=== PATIENT | male | born 2000 | race Caucasian/White ===

== ENCOUNTER 2019-05-15 13:45 | Emergency (ER) | payer OTHER ==
[~2019-05-15] VITALS: Ht 175.3 cm; Wt 74.4 kg
== END 2019-05-15 14:21 | disposition home or self-care (01) ==
LOC: ER 13:45
DX: S90.411A Abrasion, right great toe, initial encounter (principal); W22.8XXA Striking against or struck by other objects, initial encounter; Y93.89 Activity, other specified; Y92.832 Beach as the place of occurrence of the external cause; Y99.8 Other external cause status

== ENCOUNTER → 2022-04-12 | Emergency (ER) | payer OTHER ==
[~2022-04-12] VITALS: Ht 175.3 cm; Wt 79.4 kg
== END | disposition home or self-care (01) ==
LOC: ER 19:48
DX: S40.211A Abrasion of right shoulder, initial encounter (principal); S80.212A Abrasion, left knee, initial encounter; S80.211A Abrasion, right knee, initial encounter; S50.811A Abrasion of right forearm, initial encounter; V49.9XXA Car occupant (driver) (passenger) injured in unspecified traffic accident, initial encounter; Y93.89 Activity, other specified; Y92.413 State road as the place of occurrence of the external cause; Y99.9 Unspecified external cause status; Z91.013 Allergy to seafood